=== PATIENT | male | born 1995 | race Two or more races ===

== ENCOUNTER 2017-02-20 10:34 | Emergency (ER) | payer SELFPAY ==
[~2017-02-20] VITALS: Ht 172.7 cm; Wt 77.2 kg
[2017-02-20 11:32] LABS: BASOPHIL COUNT 0.1 K/uL (0-0.1); EOSINOPHIL (%) 0.8 % (0-5); EOSINOPHIL COUNT 0.1 K/uL (0-0.3); HEMATOCRIT 46.4 % (38.0-50.0); IMMATURE GRANULOCYTE (%) 0.3 % (0.0-0.7); LYMPHOCYTE COUNT 1.9 K/uL (1.0-2.8); MCH 29.5 PG (29.0-34.0); MCHC 34.1 G/DL (30.0-36.0); MCV 86.7 FL (86-99); MEAN PLAT.VOLUME 10.5 uM^3 (9.0-12.4); MONOCYTE (%) 7.4 % (3-12); MONOCYTE COUNT 0.9 K/uL (0-0.8); NEUTROPHIL (%) 75.5 % (45-76); PLATELET COUNT 248 K/uL (156-360); RBC DIS.WIDTH-CV 13.2 % (11.8-14.6); RBC DIS.WIDTH-SD 41.8 % (39-53); RED BLOOD COUNT 5.35 M/uL (4.00-5.50)
[2017-02-20 11:49] LABS: CHLORIDE 105 mEq/L (99-109); SODIUM 141 mEq/L (136-147)
[2017-02-20 11:52] LABS: GLUCOSE 129 mg/dL (70-99)
[2017-02-20 11:53] LABS: ANION GAP 12 MEQ/L (2-14); TOTAL BILIRUBIN 0.4 mg/dL (0.0-1.0)
[2017-02-20 11:54] LABS: SERUM ETHYL ALCOHOL < 10 mg/dL
[2017-02-20 11:55] LABS: ALKALINE PHOSPHATASE 66 IU/L (3-129)
[2017-02-20 11:56] LABS: UREA NITROGEN (BUN) 13 mg/dL (9-23)
[2017-02-20 11:57] LABS: DIRECT BILIRUBIN 0.2 mg/dL (0.0-0.3)
[2017-02-20 11:58] LABS: GFR ESTIMATE (CALCULATED) > 59 mL/min/
[2017-02-20 13:29] LABS: ADD MIUA? NO; BILIRUBIN NEGATIVE; BLOOD NEGATIVE; COLOR YELLOW ((YELLOW)); GLUCOSE (STRIP) NEGATIVE; KETONES NEGATIVE; LEUKOCYTES NEGATIVE; NITRITE NEGATIVE; PROTEIN (STRIP) NEGATIVE; SPECIFIC GRAVITY 1.011 (1.000-1.030); UROBILINOGEN 0.2 MG/DL (0.2-1.0)
[2017-02-20] MEDS ORDERED: MOTRIN800 MG PO (13:37)
[2017-02-20 13:44] LABS: AMPHETAMINE NEGATIVE (500 ng/mL); COCAINE NEGATIVE (150 ng/mL); METHAMPHETAMINE NEGATIVE (500 ng/mL); OPIATES (MORPHINE) NEGATIVE (100 ng/mL); PHENCYCLIDINE NEGATIVE (25 ng/mL); THC CANNABINOIDS NEGATIVE (50 ng/mL)
[2017-02-20 13:45] VITALS: BP 127/80
[2017-02-20 13:45] LABS: BARBITURATES NEGATIVE (200 ng/mL); BENZODIAZEPINES NEGATIVE (150 ng/mL); INTERNAL CONTROLS VALID? YES; METHADONE NEGATIVE (200 ng/mL); OXYCODONE NEGATIVE (100 ng/mL); PROPOXYPHENE NEGATIVE (300 ng/mL); TRICYCLIC ANTIDEPRESSANTS NEGATIVE (300 ng/mL)
== END 2017-02-20 13:46 | disposition home or self-care (01) ==
LOC: EME 10:34
PROVIDERS: Emergency Medicine
DX: F32.9 Major depressive disorder, single episode, unspecified (principal); F41.9 Anxiety disorder, unspecified; G43.909 Migraine, unspecified, not intractable, without status migrainosus; F43.21 Adjustment disorder with depressed mood; F20.9 Schizophrenia, unspecified; Z04.6 Encounter for general psychiatric examination, requested by authority
CPT/HCPCS: 70450; 80048; 80076; 81003; 85025; 99281; 99284; G0480; J1885; J2765; J7030

== ENCOUNTER 2017-02-26 15:18 | Inpatient (IN) | payer OTHER ==
[~2017-02-26] VITALS: Ht 172.7 cm; Wt 70.9 kg
[~2017-02-26 15:18] MED LIST: MOTRIN800 MG PO
[2017-02-26 16:05] LABS: HEMATOCRIT 45.8 % (38.0-50.0); MCHC 34.1 G/DL (30.0-36.0); MCV 88.1 FL (86-99); MEAN PLAT.VOLUME 10.4 uM^3 (9.0-12.4); PLATELET COUNT 218 K/uL (156-360); RBC DIS.WIDTH-CV 12.7 % (11.8-14.6); RBC DIS.WIDTH-SD 41.3 % (39-53); WHITE BLOOD COUNT 7.6 K/uL (4.1-10.2)
[2017-02-26 16:14] LABS: CHLORIDE 106 mEq/L (99-109); SODIUM 139 mEq/L (136-147)
[2017-02-26 16:16] LABS: GLUCOSE 92 mg/dL (70-99)
[2017-02-26 16:17] LABS: ANION GAP 6 MEQ/L (2-14)
[2017-02-26 16:19] LABS: SERUM ETHYL ALCOHOL < 10 mg/dL
[2017-02-26 16:20] LABS: ALKALINE PHOSPHATASE 64 IU/L (3-129); GFR ESTIMATE (CALCULATED) > 59 mL/min/; TOTAL BILIRUBIN 0.5 mg/dL (0.0-1.0)
[2017-02-26 16:21] LABS: UREA NITROGEN (BUN) 17 mg/dL (9-23)
[2017-02-26 17:16] LABS: ADD MIUA? YES; BILIRUBIN NEGATIVE; BLOOD NEGATIVE; COLOR YELLOW ((YELLOW)); GLUCOSE (STRIP) NEGATIVE; KETONES NEGATIVE; LEUKOCYTES NEGATIVE; NITRITE NEGATIVE; PROTEIN (STRIP) NEGATIVE
[2017-02-26 17:25] LABS: AMPHETAMINE NEGATIVE (500 ng/mL); BARBITURATES NEGATIVE (200 ng/mL); BENZODIAZEPINES NEGATIVE (150 ng/mL); COCAINE NEGATIVE (150 ng/mL); INTERNAL CONTROLS VALID? YES; METHADONE NEGATIVE (200 ng/mL); METHAMPHETAMINE NEGATIVE (500 ng/mL); OPIATES (MORPHINE) NEGATIVE (100 ng/mL); OXYCODONE NEGATIVE (100 ng/mL); PHENCYCLIDINE NEGATIVE (25 ng/mL); PROPOXYPHENE NEGATIVE (300 ng/mL); THC CANNABINOIDS NEGATIVE (50 ng/mL); TRICYCLIC ANTIDEPRESSANTS NEGATIVE (300 ng/mL)
[2017-02-26 17:47] LABS: AMORPHOUS URATES CRYSTALS 2+; BACTERIA 1+ /HPF; CASTS NONE SEEN /LPF; CRYSTALS PRESENT; EPITHELIAL CELLS NONE SEEN /HPF; MUCUS RARE /LPF; RED BLOOD CELLS 0-5 /HPF (0-5); WHITE BLOOD CELLS 0-5 /HPF (0-5)
[2017-02-26 22:23] VITALS: BP 125/72
[2017-02-27 07:58] VITALS: BP 111/56
[2017-02-27 16:21] VITALS: BP 108/76
[2017-02-28 07:36] VITALS: BP 117/81
[2017-02-28 15:22] VITALS: BP 126/68
[2017-03-01 08:02] VITALS: BP 98/53
[2017-03-01 15:48] VITALS: BP 115/63
[2017-03-02 07:52] VITALS: BP 127/58
[2017-03-02 15:34] VITALS: BP 119/68
[2017-03-03 07:25] VITALS: BP 124/51
[2017-03-03 16:18] VITALS: BP 108/59
[2017-03-04 07:29] VITALS: BP 96/48
[2017-03-04 15:29] VITALS: BP 99/54
[2017-03-05 07:41] VITALS: BP 117/56
[2017-03-05 15:27] VITALS: BP 110/63
[2017-03-06 07:56] VITALS: BP 118/58
[2017-03-06 16:00] VITALS: BP 97/55
[2017-03-07 07:18] VITALS: BP 98/55
[2017-03-07 15:47] VITALS: BP 139/63
[2017-03-08 07:29] VITALS: BP 92/52
[2017-03-08 15:10] VITALS: BP 123/72
[2017-03-09 07:29] VITALS: BP 92/54
[2017-03-09 15:45] VITALS: BP 110/68
[2017-03-10 07:25] VITALS: BP 115/58
[2017-03-10 15:48] VITALS: BP 125/60
[2017-03-11 07:50] VITALS: BP 101/59
[2017-03-11 15:44] VITALS: BP 115/59
[2017-03-12 07:58] VITALS: BP 126/59
[2017-03-12 15:26] VITALS: BP 125/65
[2017-03-13 07:23] VITALS: BP 83/44
[2017-03-13 11:32] VITALS: BP 109/72
[2017-03-13 15:31] VITALS: BP 129/69
[2017-03-14 07:32] VITALS: BP 105/58
[2017-03-14 16:26] VITALS: BP 112/65
[2017-03-15 07:56] VITALS: BP 106/59
[2017-03-15 15:26] VITALS: BP 121/68
[2017-03-16 07:41] VITALS: BP 104/67
[2017-03-16] MEDS ORDERED: RISPERDAL2 MG PO (11:35)
== END 2017-03-16 12:26 | disposition home or self-care (01) | DRG 885 ==
LOC: EME 15:18 → EDOF 19:34 → 1WEST 19:34
PROVIDERS: Emergency Medicine
DX: F20.9 Schizophrenia, unspecified (principal); F17.200 Nicotine dependence, unspecified, uncomplicated; Z91.14 Patient's other noncompliance with medication regimen
CPT/HCPCS: 80053; 81003; 85027; 90837; 97150 GO; 97166 GO; 99281; 99284; G0480

== ENCOUNTER → 2017-04-04 | Emergency (ER) | payer OTHER ==
[~2017-04-04] VITALS: Ht 170.2 cm; Wt 68.1 kg
[~2017-04-04] MED LIST changes: +KEFLEX500 MG PO; +RISPERDAL2 MG PO
[2017-04-04 15:16] VITALS: BP 00/00
== END | disposition left against medical advice (07) ==
LOC: EME 14:38
DX: Z02.89 Encounter for other administrative examinations (principal); Z53.21 Procedure and treatment not carried out due to patient leaving prior to being seen by health care provider

== ENCOUNTER 2017-04-06 14:54 | Emergency (ER) | payer OTHER ==
[~2017-04-06] VITALS: Ht 172.7 cm; Wt 69.9 kg
[~2017-04-06 14:54] MED LIST changes: -KEFLEX500 MG PO
[2017-04-06 15:18] VITALS: BP 108/69
[2017-04-06] MEDS ORDERED: KEFLEX500 MG PO (15:31)
== END 2017-04-06 15:44 | disposition home or self-care (01) ==
LOC: EME 14:54
DX: S30.21XA Contusion of penis, initial encounter (principal); Y35.813A Legal intervention involving manhandling, suspect injured, initial encounter; F17.200 Nicotine dependence, unspecified, uncomplicated
CPT/HCPCS: 99281; 99283

== ENCOUNTER 2017-06-11 17:00 | Emergency (ER) | payer OTHER ==
[~2017-06-11] VITALS: Ht 165.1 cm; Wt 68.7 kg
[~2017-06-11 17:00] MED LIST changes: +KEFLEX500 MG PO
[2017-06-11 18:07] LABS: HEMATOCRIT 45.5 % (38.0-50.0); MCH 30.2 PG (29.0-34.0); MCHC 34.3 G/DL (30.0-36.0); MEAN PLAT.VOLUME 10.6 uM^3 (9.0-12.4); PLATELET COUNT 201 K/uL (156-360); RBC DIS.WIDTH-CV 13.2 % (11.8-14.6); RBC DIS.WIDTH-SD 42.8 % (39-53); RED BLOOD COUNT 5.17 M/uL (4.00-5.50); WHITE BLOOD COUNT 8.7 K/uL (4.1-10.2)
[2017-06-11 18:15] LABS: CHLORIDE 106 mEq/L (99-109); POTASSIUM 3.7 mEq/L (3.7-5.4); SODIUM 141 mEq/L (136-147)
[2017-06-11 18:18] LABS: GLUCOSE 113 mg/dL (70-99)
[2017-06-11 18:19] LABS: ANION GAP 9 MEQ/L (2-14)
[2017-06-11 18:20] LABS: TOTAL BILIRUBIN 0.4 mg/dL (0.0-1.0)
[2017-06-11 18:21] LABS: ALKALINE PHOSPHATASE 73 IU/L (3-129); GFR ESTIMATE (CALCULATED) > 59 mL/min/
[2017-06-11 18:22] LABS: UREA NITROGEN (BUN) 16 mg/dL (9-23)
[2017-06-11] MEDS ORDERED: ZOFRAN4 MG PO (18:35)
[2017-06-11] MEDS ORDERED: MAALOX ADVANCE355 ML PO (18:35)
[2017-06-11 18:56] VITALS: BP 117/72
== END 2017-06-11 18:59 | disposition home or self-care (01) ==
LOC: EME 17:00
DX: J02.9 Acute pharyngitis, unspecified (principal); F32.9 Major depressive disorder, single episode, unspecified; F17.200 Nicotine dependence, unspecified, uncomplicated
CPT/HCPCS: 80053; 81003; 85027; 99281; 99283

== ENCOUNTER 2017-10-04 12:56 | Inpatient (IN) | payer OTHER ==
[~2017-10-04] VITALS: Ht 175.3 cm; Wt 66.5 kg
[~2017-10-04 12:56] MED LIST changes: +MAALOX ADVANCE355 ML PO; +ZOFRAN4 MG PO
[2017-10-04 14:04] LABS: BASOPHIL (%) 0.5 % (0-1); EOSINOPHIL (%) 0 % (0-5); HEMATOCRIT 42.5 % (38.0-50.0); HEMOGLOBIN 14.9 G/DL (12.5-16.6); IMMATURE GRANULOCYTE (%) 0.4 % (0.0-0.7); LYMPHOCYTE (%) 19.4 % (15-42); LYMPHOCYTE COUNT 1.1 K/uL (1.0-2.8); MCH 29.9 PG (29.0-34.0); MCHC 35.1 G/DL (30.0-36.0); MCV 85.3 FL (86-99); MONOCYTE (%) 11.9 % (3-12); MONOCYTE COUNT 0.7 K/uL (0-0.8); NEUTROPHIL (%) 67.8 % (45-76); NEUTROPHIL COUNT 3.9 K/uL (1.8-6.4); PLATELET COUNT 131 K/uL (156-360); RBC DIS.WIDTH-CV 12.9 % (11.8-14.6); RBC DIS.WIDTH-SD 39.8 % (39-53); RED BLOOD COUNT 4.98 M/uL (4.00-5.50); WHITE BLOOD COUNT 5.7 K/uL (4.1-10.2)
[2017-10-04 17:01] LABS: COCAINE NEGATIVE (150 ng/mL); PHENCYCLIDINE NEGATIVE (25 ng/mL); THC CANNABINOIDS PRESUMPTIVE POSITIVE (50 ng/mL)
[2017-10-04 17:02] LABS: AMPHETAMINE NEGATIVE (500 ng/mL); BARBITURATES NEGATIVE (200 ng/mL); BENZODIAZEPINES PRESUMPTIVE POSITIVE (150 ng/mL); BUPRENORPHINE NEGATIVE (10 ng/mL); METHADONE NEGATIVE (200 ng/mL); METHAMPHETAMINE NEGATIVE (500 ng/mL); OPIATES (MORPHINE) NEGATIVE (100 ng/mL); OXYCODONE NEGATIVE (100 ng/mL); PROPOXYPHENE NEGATIVE (300 ng/mL); TRICYCLIC ANTIDEPRESSANTS NEGATIVE (300 ng/mL)
[2017-10-04 17:30] VITALS: BP 107/61
[2017-10-04 17:40] LABS: ALBUMIN 4.6 g/dL (3.2-4.8)
[2017-10-04 17:41] LABS: CHLORIDE 103 mEq/L (99-109); POTASSIUM 3.6 mEq/L (3.7-5.4); SODIUM 134 mEq/L (136-147)
[2017-10-04 17:43] LABS: GLUCOSE 90 mg/dL (70-99); TOTAL PROTEIN 7.4 g/dL (6.4-8.3)
[2017-10-04 17:45] LABS: TOTAL BILIRUBIN 0.3 mg/dL (0.0-1.0)
[2017-10-04 17:46] LABS: ALKALINE PHOSPHATASE 66 IU/L (3-129); SERUM ETHYL ALCOHOL < 10 mg/dL
[2017-10-04 17:47] LABS: GFR ESTIMATE (CALCULATED) > 59 mL/min/ (58.99-99999)
[2017-10-04 17:48] LABS: AST (GOT) 19 IU/L (2-34); UREA NITROGEN (BUN) 17 mg/dL (9-23)
[2017-10-04 17:50] LABS: ALT (GPT) 17 IU/L (3-49)
[2017-10-04 22:21] LABS: BENZODIAZEPINES, URINE SCREEN ND (200 ng/mL)
[2017-10-07 15:36] VITALS: BP 123/71
[2017-10-08 08:07] VITALS: BP 131/58
[2017-10-08 15:30] VITALS: BP 126/84
[2017-10-09 09:08] VITALS: BP 126/74
[2017-10-09 15:08] VITALS: BP 134/84
[2017-10-10 07:59] VITALS: BP 114/69
[2017-10-10 14:56] VITALS: BP 105/71
[2017-10-11 07:50] VITALS: BP 117/63
[2017-10-11] MEDS ORDERED: RISPERDAL3 MG PO (10:03)
== END 2017-10-11 13:34 | disposition home or self-care (01) | DRG 885 ==
LOC: EME 12:56 → EDOF 15:40 → 1WEST 15:40 → ENRESERV 16:58 → 1WEST 17:15
PROVIDERS: Emergency Medicine
DX: F20.9 Schizophrenia, unspecified (principal); F17.200 Nicotine dependence, unspecified, uncomplicated; Z91.14 Patient's other noncompliance with medication regimen
CPT/HCPCS: 80053; 84999; 85025; 90837; 97150 GO; 97166 GO; 99281; 99285; G0480; J1200; J1630; J2060

== ENCOUNTER 2017-12-28 13:33 | Emergency (ER) | payer OTHER ==
[~2017-12-28] VITALS: Ht 175.3 cm; Wt 79.8 kg
[~2017-12-28 13:33] MED LIST changes: +RISPERDAL3 MG PO
[2017-12-28 15:22] VITALS: BP 104/68
== END 2017-12-28 15:10 | disposition home or self-care (01) ==
LOC: EME 13:33
DX: F20.9 Schizophrenia, unspecified (principal); F32.9 Major depressive disorder, single episode, unspecified; Z87.820 Personal history of traumatic brain injury; F17.200 Nicotine dependence, unspecified, uncomplicated
CPT/HCPCS: 99281; 99283

== ENCOUNTER 2018-02-15 16:04 | Inpatient (IN) | payer OTHER ==
[~2018-02-15] VITALS: Ht 167.6 cm; Wt 80.1 kg
[2018-02-15 17:32] LABS: HEMATOCRIT 42.2 % (38.0-50.0); HEMOGLOBIN 15.1 G/DL (12.5-16.6); MCH 31.1 PG (29.0-34.0); MCHC 35.8 G/DL (30.0-36.0); MCV 86.8 FL (86-99); PLATELET COUNT 171 K/uL (156-360); RBC DIS.WIDTH-CV 12.9 % (11.8-14.6); RED BLOOD COUNT 4.86 M/uL (4.00-5.50); WHITE BLOOD COUNT 8.7 K/uL (4.1-10.2)
[2018-02-15 17:54] LABS: CHLORIDE 103 mEq/L (99-109); POTASSIUM 3.5 mEq/L (3.7-5.4); SODIUM 140 mEq/L (136-147)
[2018-02-15 17:56] LABS: GLUCOSE 90 mg/dL (70-99)
[2018-02-15 17:59] LABS: SERUM ETHYL ALCOHOL < 10 mg/dL
[2018-02-15 18:00] LABS: GFR ESTIMATE (CALCULATED) > 59 mL/min/ (58.99-99999)
[2018-02-15 18:01] LABS: UREA NITROGEN (BUN) 11 mg/dL (9-23)
[2018-02-15 20:41] VITALS: BP 118/71
[2018-02-15 20:54] VITALS: BP 118/71
[2018-02-16 08:05] VITALS: BP 107/61
[2018-02-17 08:25] VITALS: BP 117/55
[2018-02-17 15:22] VITALS: BP 89/41
[2018-02-18 08:08] VITALS: BP 114/57
[2018-02-18 17:06] VITALS: BP 148/69
[2018-02-19 07:46] VITALS: BP 112/58
[2018-02-19 15:00] VITALS: BP 120/63
[2018-02-20 07:37] VITALS: BP 104/50
[2018-02-20 15:17] VITALS: BP 113/59
[2018-02-21 07:53] VITALS: BP 107/62
[2018-02-21] MEDS ORDERED: RISPERDAL4 MG PO (10:10)
== END 2018-02-21 12:12 | disposition home or self-care (01) | DRG 885 ==
LOC: EME 16:04 → 1WEST 19:37 → EDOF 19:37 → ENRESERV 20:25 → 1WEST 20:40
PROVIDERS: Emergency Medicine
DX: F20.3 Undifferentiated schizophrenia (principal); F17.210 Nicotine dependence, cigarettes, uncomplicated
CPT/HCPCS: 80048; 85027; 90837; 97150 GO; 97166 GO; 99281; 99285; G0480; J1630; J2060